=== PATIENT | male | born 1990 | race American Indian/Alaskan Native ===

== ENCOUNTER 2020-07-24 14:53 | Emergency (ER) | payer SELFPAY ==
--- NOTE | 2020-07-24 15:02 | Emergency Department Report ---
Minor Respiratory - HPI Stated Complaint: LT EAR/JAW PAIN Time Seen by Provider: 07/24/20 14:57 Duration: 3 Days Pain Location: Facial, Ear Severity: moderate Minor Respiratory: Yes Able to Tolerate Fluids, Yes Ear Pain, No Rhinorrhea, No Sore Throat, No Cough, No Sick Contacts, No Hemoptysis, No Chest Pain, No Shortness of Breath, No Fever Other History: Patient is a 29-year-old -Portuguese male comes to the ER with left ear pain. He reports that the pain is radiating into his jaw. He has no difficulty swallowing. There is no trismus. There is no Ludewig's. No abscess. Patient is ambulatory nontoxic and ign-owo-yjdeoleig. He is taking p.o. Patient denies shortness of breath, chest pain fever or chills. Patient has not seen his primary care doctor nor taken any medication prior to arrival. ED Review of Systems ROS: Stated complaint: LT EAR/JAW PAIN Other details as noted in HPI Comment: All other systems reviewed and negative ED Past Medical Hx - Past Medical History Previous Medical History?: No - Surgical History Past Surgical History?: No - Family History Family history: no significant - Social History Smoking Status: Never Smoker Substance Use Type: Alcohol - Medications Home Medications: Home Medications Medication Instructions Recorded Confirmed Last Taken Type Amoxicillin [Trimox CAP] 500 mg PO BID #20 capsule 07/24/20 Unknown Rx Minor Respiratory Exam - Exam General: Vital signs noted. No distress. Alert and acting appropriately. HEENT: Yes Moist Mucous Membranes, No Pharyngeal Erythema, No Pharyngeal Exudates, No Rhinorrhea, No Conjuctival Injection, No Frontal Tenderness, No Maxillary Tenderness Ear: Left TM Erythema, Left EAC Pain, Neither TM Bulge, Neither EAC Discharge Neck: Yes Adenopathy, Yes Supple Lungs: Yes Good Air Exchange, No Wheezes, No Ronchi, No Stridor, No Cough, No Labored Respirations, No Retractions, No Use of Accessory Muscles, No Other Abnormal Lung Sounds Heart: Yes Regular, No Murmur Abdomen: Yes Normal Bowel Sounds, No Tenderness, No Peritoneal Signs Skin: No Rash, No Edema Neurologic: Alert and oriented, no deficits. Musculoskeletal: Unremarkable. ED Medical Decision Making - Medical Decision Making TM noted to be red on exam. Left cervical lymphadenopathy. Patient being discharged home on amoxicillin. He verbalizes understanding of discharge plan of care including medications and follow-up. Vital Signs 07/24/20 14:58 Temperature 98.7 F Pulse Rate 89 Respiratory 16 Rate Blood Pressure 131/75 O2 Sat by Pulse 97 Oximetry - Differential Diagnosis URI, OM, pharyngitis Critical care attestation.: If time is entered above; I have spent that time in minutes in the direct care of this critically ill patient, excluding procedure time. ED Disposition Clinical Impression: Otitis media Disposition: DC- TO HOME OR SELFCARE Is pt being admited?: No Does the pt Need Aspirin: No Condition: Stable Additional Instructions: med as ordered today follow up with pcp in 1 week stay well hydrated motrin or tylenol for pain or fever diet and activity as tolerated Prescriptions: Amoxicillin [Trimox CAP] 500 mg PO BID #20 capsule Referrals: DELROY SOUTH MD [Staff Physician] - 3-5 Days Forms: Work/School Release Form(ED) Time of Disposition: 15:01
[2020-07-24 15:04] VITALS: BP 131/75
== END 2020-07-24 15:27 | disposition home or self-care (01) ==
LOC: ED 14:53
DX: H66.92 Otitis media, unspecified, left ear (principal); Z79.899 Other long term (current) drug therapy
CPT/HCPCS: 99282

== ENCOUNTER 2020-08-08 15:29 | Emergency (ER) | payer SELFPAY ==
[2020-08-08 15:38] VITALS: BP 141/78
--- NOTE | 2020-08-08 16:08 | Emergency Department Report ---
ED ENT HPI - General Chief complaint: Earache Stated complaint: LT EAR INFECTION Time Seen by Provider: 08/08/20 15:56 Source: patient Mode of arrival: Ambulatory Limitations: No Limitations - History of Present Illness Initial comments: 29-year-old F [place] male with asthma department complaining of 2-week history of left ear pain which is continued despite his utilization amoxicillin. Ports no fever, chills, sweats but pain is worse with chewing, palpation and located around the tragal area of the left ear. He reports no no discharge, no dizzi ness, no loss of hearing. MD complaint: ear pain -: Gradual Location: L ear Severity: mild Quality: aching, dull Consistency: constant Improves with: none Worsens with: none Context- Ear: other Associated Symptoms: denies: sore throat, tinnitus, rhinorrhea - Related Data Previous Rx's Medication Instructions Recorded Last Taken Type Amoxicillin [Trimox CAP] 500 mg PO BID #20 capsule 07/24/20 Unknown Rx Neomy/Polymyx B/Hc (Otic) Soln 4 drops TID #1 bottle 08/08/20 Unknown Rx [Cortisporin (Otic) Soln] predniSONE [Deltasone] 20 mg PO QDAY #7 tab 08/08/20 Unknown Rx Allergies Allergy/AdvReac Type Severity Reaction Status Date / Time No Known Allergies Allergy Verified 08/08/20 15:38 ED Dental HPI - General Chief complaint: Earache Stated complaint: LT EAR INFECTION Time Seen by Provider: 08/08/20 15:56 Source: patient Mode of arrival: Ambulatory Limitations: No Limitations - Related Data Previous Rx's Medication Instructions Recorded Last Taken Type Amoxicillin [Trimox CAP] 500 mg PO BID #20 capsule 07/24/20 Unknown Rx Neomy/Polymyx B/Hc (Otic) Soln 4 drops TID #1 bottle 08/08/20 Unknown Rx [Cortisporin (Otic) Soln] predniSONE [Deltasone] 20 mg PO QDAY #7 tab 08/08/20 Unknown Rx Allergies Allergy/AdvReac Type Severity Reaction Status Date / Time No Known Allergies Allergy Verified 08/08/20 15:38 ED Review of Systems ROS: Stated complaint: LT EAR INFECTION Other details as noted in HPI Comment: All other systems reviewed and negative ED Past Medical Hx - Social History Smoking Status: Current Every Day Smoker Substance Use Type: None - Medications Home Medications: Home Medications Medication Instructions Recorded Confirmed Last Taken Type Amoxicillin [Trimox CAP] 500 mg PO BID #20 capsule 07/24/20 Unknown Rx Neomy/Polymyx B/Hc (Otic) Soln 4 drops TID #1 bottle 08/08/20 Unknown Rx [Cortisporin (Otic) Soln] predniSONE [Deltasone] 20 mg PO QDAY #7 tab 08/08/20 Unknown Rx ED Physical Exam - General Limitations: No Limitations General appearance: alert, in no apparent distress - Head Head exam: Present: atraumatic, normocephalic - Eye Eye exam: Present: normal appearance, PERRL, EOMI - ENT ENT exam: Present: mucous membranes moist, other (Tenderness to the left trigger region. Some some inflammation to the outer third of the ear canal. Tympanic membrane is intact no effusion no injection no perforation.) - Neck Neck exam: Present: normal inspection - Respiratory Respiratory exam: Present: normal lung sounds bilaterally. Absent: respiratory distress - Cardiovascular Cardiovascular Exam: Present: regular rate, normal rhythm. Absent: systolic murmur, diastolic murmur, rubs, gallop - GI/Abdominal GI/Abdominal exam: Present: soft, normal bowel sounds - Rectal Rectal exam: Present: deferred - Extremities Exam Extremities exam: Present: normal inspection - Back Exam Back exam: Present: normal inspection - Neurological Exam Neurological exam: Present: alert, oriented X3 - Psychiatric Psychiatric exam: Present: normal affect, normal mood - Skin Skin exam: Present: warm, dry, intact, normal color. Absent: rash ED Course Vital Signs 08/08/20 15:34 Temperature 98.6 F Pulse Rate 77 Respiratory 18 Rate Blood Pressure 141/78 O2 Sat by Pulse 99 Oximetry Critical care attestation.: If time is entered above; I have spent that time in minutes in the direct care of this critically ill patient, excluding procedure time. ED Disposition Clinical Impression: Otitis externa Disposition: DC-01 TO HOME OR SELFCARE Is pt being admited?: No Does the pt Need Aspirin: No Condition: Stable Instructions: Ear Drops, Adult, Otitis Externa Prescriptions: Neomy/Polymyx B/Hc (Otic) Soln [Cortisporin (Otic) Soln] 4 drops TID #1 bottle predniSONE [Deltasone] 20 mg PO QDAY #7 tab Referrals: [facility] [Provider Group] - 3-5 Days
== END 2020-08-08 17:28 | disposition home or self-care (01) ==
LOC: ED 15:29
DX: H60.92 Unspecified otitis externa, left ear (principal); F17.200 Nicotine dependence, unspecified, uncomplicated; Z79.899 Other long term (current) drug therapy
CPT/HCPCS: 99281

== ENCOUNTER 2021-05-21 10:29 | Emergency (ER) | payer SELFPAY ==
[2021-05-21 10:48] VITALS: BP 124/75
[2021-05-21] MEDS ORDERED: KETOROLAC 60 MG/2 ML INJ IM ONE (11:14)
--- NOTE | 2021-05-21 11:18 | Emergency Department Report ---
ED Back Pain/Injury HPI - General Chief Complaint: Back Pain/Injury Stated Complaint: BACK PAIN Time Seen by Provider: 05/21/21 11:07 Source: patient Limitations: No Limitations - History of Present Illness Initial Comments: Patient is a 30-year-old male presents emergency room complaints of lower back pain that began 4 to 5 days ago. He denies any fall or injury. He denies any significantly heavy lifting. He states that his job he does not lift more than approximately 35 pounds. He denies any fever, nausea, vomiting, diarrhea, urinary symptoms, abdominal pain, numbness, weakness, bowel or bladder incontinence. He denies any past medical history. No allergies to medications. He states he is a non-smoker. He reports rare alcohol use. He denies any drug use or IV drug use. He denies any steroid use or history of cancer. - Related Data Previous Rx's Medication Instructions Recorded Last Taken Type Amoxicillin [Trimox CAP] 500 mg PO BID #20 capsule 07/24/20 Unknown Rx Neomy/Polymyx B/Hc (Otic) Soln 4 drops TID #1 bottle 08/08/20 Unknown Rx [Cortisporin (Otic) Soln] predniSONE [Deltasone] 20 mg PO QDAY #7 tab 08/08/20 Unknown Rx Menthol/Camphor [[place] 1 applicatio TP BID #18 oint...g. 05/21/21 Unknown Rx Ointment] Naproxen 500 mg PO BID PRN #14 tablet 05/21/21 Unknown Rx methOCARBAMOL [Robaxin TAB] 500 mg PO BID PRN #14 tab 05/21/21 Unknown Rx Allergies Allergy/AdvReac Type Severity Reaction Status Date / Time No Known Allergies Allergy Verified 05/21/21 10:48 ED Review of Systems ROS: Stated complaint: BACK PAIN Other details as noted in HPI Comment: All other systems reviewed and negative ED Past Medical Hx - Past Medical History Previous Medical History?: No - Surgical History Past Surgical History?: No - Social History Smoking Status: Never Smoker Substance Use Type: None - Medications Home Medications: Home Medications Medication Instructions Recorded Confirmed Last Taken Type Amoxicillin [Trimox CAP] 500 mg PO BID #20 capsule 07/24/20 05/21/21 Unknown Rx Neomy/Polymyx B/Hc (Otic) Soln 4 drops TID #1 bottle 08/08/20 05/21/21 Unknown Rx [Cortisporin (Otic) Soln] predniSONE [Deltasone] 20 mg PO QDAY #7 tab 08/08/20 05/21/21 Unknown Rx Menthol/Camphor [[place] 1 applicatio TP BID #18 oint...g. 05/21/21 Unknown Rx Ointment] Naproxen 500 mg PO BID PRN #14 tablet 05/21/21 Unknown Rx methOCARBAMOL [Robaxin TAB] 500 mg PO BID PRN #14 tab 05/21/21 Unknown Rx ED Physical Exam - General Limitations: No Limitations General appearance: alert, in no apparent distress - Head Head exam: Present: atraumatic, normocephalic - Eye Eye exam: Present: normal appearance - ENT ENT exam: Present: mucous membranes moist - Neck Neck exam: Present: normal inspection, full ROM. Absent: tenderness, meningismus - Respiratory Respiratory exam: Present: normal lung sounds bilaterally. Absent: respiratory distress, wheezes, rales, rhonchi, stridor, chest wall tenderness, accessory muscle use, decreased breath sounds, prolonged expiratory - Cardiovascular Cardiovascular Exam: Present: regular rate, normal rhythm, normal heart sounds. Absent: systolic murmur, diastolic murmur, rubs, gallop - Back Exam Back exam: Present: normal inspection, full ROM. Absent: paraspinal tenderness, vertebral tenderness - Neurological Exam Neurological exam: Present: alert, oriented X3, CN II-XII intact, normal gait. Absent: motor sensory deficit - Psychiatric Psychiatric exam: Present: normal affect, normal mood - Skin Skin exam: Present: warm, dry, intact ED Course Vital Signs 05/21/21 10:46 Temperature 98.0 F Pulse Rate 71 Respiratory 14 Rate Blood Pressure 124/75 Blood Pressure 122/75 [Right] O2 Sat by Pulse 100 Oximetry ED Medical Decision Making - Medical Decision Making Patient is a 30-year-old male presents emergency room complaints of lower back pain that began 4 to 5 days ago. He denies any fall or injury. He denies any significantly heavy lifting. He states that his job he does not lift more than approximately 35 pounds. He denies any fever, nausea, vomiting, diarrhea, urinary symptoms, abdominal pain, numbness, weakness, bowel or bladder incontinence. He denies any past medical history. No allergies to medications. He states he is a non-smoker. He reports rare alcohol use. He denies any drug use or IV drug use. He denies any steroid use or history of cancer. Vitals are normal. No midline or paraspinal C-spine, T-spine, L-spine tenderness outpatient, no step-offs, no deformities, no focal neuro deficits, ambulatory without difficulty. Patient has no red flag warning signs of back pain, no trauma, no unexplained weight loss, no fever, no IV drug use, no steroid use, no history of cancer, no neuro deficits, age is not greater than 50. Patient given Toradol injection while in the emergency department as he did drive to the ED. Patient given prescription for medication. Advised patient Please use medication as prescribed. May use ice pack, heating pad, rest, epsom salt bath. Do not use heat or ice while using Boles balm. Follow-up with your primary care doctor. Follow-up with a order fulfillment specialist. Return to emergency room for any new or worsening symptoms. Critical care attestation.: If time is entered above; I have spent that time in minutes in the direct care of this critically ill patient, excluding procedure time. ED Disposition Clinical Impression: Back pain Qualifiers: Back pain location: low back pain Chronicity: acute Back pain laterality: unspecified Sciatica presence: unspecified whether sciatica present Qualified Code(s): M54.50 - Low back pain, unspecified Disposition: 01 HOME / SELF CARE / HOMELESS Is pt being admited?: No Does the pt Need Aspirin: No Condition: Stable Instructions: Acute Back Pain, Adult Additional Instructions: Please use medication as prescribed. May use ice pack, heating pad, rest, epsom salt bath. Do not use heat or ice while using Boles balm. Follow-up with your primary care doctor. Follow-up with a order fulfillment specialist. Return to emergency room for any new or worsening symptoms. Prescriptions: Naproxen 500 mg PO BID PRN #14 tablet PRN Reason: pain methOCARBAMOL [Robaxin TAB] 500 mg PO BID PRN #14 tab PRN Reason: muscle spasm/pain Menthol/Camphor [[place] Ointment] 1 applicatio TP BID #18 oint...g. Referrals: PRIMARY CARE, [Primary Care Provider] - 3-5 Days TJ VERA II, MD [Staff Physician] - 3-5 Days Time of Disposition: 11:17 Print Language: COMORAN
== END 2021-05-21 11:26 | disposition home or self-care (01) ==
LOC: ED 10:29
DX: M54.50 Low back pain, unspecified (principal); Z79.899 Other long term (current) drug therapy
CPT/HCPCS: 96372; 99282; J1885